=== PATIENT | male | born 1960 | race Caucasian/White ===

== ENCOUNTER 2022-12-07 04:03 | Day surgery (SDC) | payer OTHER, MEDICARE ==
[2022-12-05 10:53] VITALS: BMI 25.0
[~2022-12-07 04:03] MED LIST: ACETAMINOPHEN 500 MG TABLET (FP) PO PRN; IOHEXOL 180 MG/1 ML ML IJ ONE; LIDOCAINE HCL 1% PRESERVATIVE FREE - 30ML VIAL IJ ONE
[2022-12-07 08:22] VITALS: RESP 18
[2022-12-07] MEDS ORDERED: ACETAMINOPHEN 500 MG TABLET (FP) PO PRN (09:32)
[2022-12-07] MEDS ORDERED: LIDOCAINE HCL 1% PRESERVATIVE FREE - 30ML VIAL IJ ONE (10:20)
[2022-12-07] MEDS ORDERED: IOHEXOL 180 MG/1 ML ML IJ ONE (10:20)
[2022-12-07 10:56] VITALS: BP 136/64
[2022-12-07 11:05] VITALS: PULSE 70; TEMP 98
== END 2022-12-07 11:00 | disposition home or self-care (01) ==
LOC: JASU-SURG 04:03
PROVIDERS: ATTEND Pain Medicine Pain Medicine
PROC: 3E0R3BZ Introduction of Anesthetic Agent into Spinal Canal, Percutaneous Approach (ICD-10-PCS; 2022-12-07)
PROC: 3E0R33Z Introduction of Anti-inflammatory into Spinal Canal, Percutaneous Approach (ICD-10-PCS; principal; 2022-12-07 10:15)
DX: M54.16 Radiculopathy, lumbar region (principal)
CPT/HCPCS: 76000-TC-FY

== ENCOUNTER 2023-01-15 04:19 | Day surgery (SDC) | payer OTHER, MEDICARE ==
[2023-01-11 12:03] VITALS: BMI 25.0
[2023-01-15] MEDS ORDERED: BUPIVACAINE HCL/PF 0.25% (2.5MG/ML) 10 ML VIAL ONE (07:54)
[2023-01-15] MEDS ORDERED: BUPIVACAINE HCL/PF 0.5% (5MG/ML) 10 ML VIAL ONE (07:54)
[2023-01-15] MEDS ORDERED: ACETAMINOPHEN 500 MG TABLET (FP) PO PRN (09:54)
[2023-01-15 13:10] VITALS: TEMP 98.4
[2023-01-15] MEDS ORDERED: BUPIVACAINE HCL/PF 0.75% 10 ML VIAL ONE (14:32)
[2023-01-15] MEDS ORDERED: BUPIVACAINE HCL/PF 0.75% 10 ML VIAL NR ONE (14:33)
[2023-01-15] MEDS ORDERED: LIDOCAINE HCL 1%, 10 MG/ML (50 mL VIAL) NR ONE (14:33)
[2023-01-15 15:06] VITALS: BP 150/93; PULSE 60; RESP 20
== END 2023-01-15 15:12 | disposition home or self-care (01) ==
LOC: JASU-SURG 04:19
PROVIDERS: ATTEND Pain Medicine Pain Medicine
PROC: 3E0T33Z Introduction of Anti-inflammatory into Peripheral Nerves and Plexi, Percutaneous Approach (ICD-10-PCS; 2023-01-15)
PROC: 3E0T3BZ Introduction of Anesthetic Agent into Peripheral Nerves and Plexi, Percutaneous Approach (ICD-10-PCS; principal; 2023-01-15 14:30)
DX: M47.816 Spondylosis without myelopathy or radiculopathy, lumbar region (principal)
CPT/HCPCS: 76000-TC-FY

== ENCOUNTER 2023-02-15 04:44 | Day surgery (SDC) | payer OTHER, MEDICARE ==
[2023-02-13 17:56] VITALS: BMI 25.0
[~2023-02-15 04:44] MED LIST changes: -IOHEXOL 180 MG/1 ML ML IJ ONE; -LIDOCAINE HCL 1% PRESERVATIVE FREE - 30ML VIAL IJ ONE
[2023-02-15] MEDS ORDERED: LIDOCAINE HCL/PF 1% SDV 5ML VIAL ONE (07:32)
[2023-02-15] MEDS ORDERED: BUPIVACAINE HCL/PF 0.75% 10 ML VIAL ONE (07:32)
[2023-02-15 10:11] VITALS: RESP 18
[2023-02-15] MEDS ORDERED: LIDOCAINE HCL 1% PRESERVATIVE FREE - 30ML VIAL IJ ONE (12:13)
[2023-02-15] MEDS ORDERED: BUPIVACAINE HCL/PF 0.25% (2.5MG/ML) 10 ML VIAL IJ ONE (12:14)
[2023-02-15 12:35] VITALS: BP 144/82; PULSE 57; TEMP 97.9
[2023-02-15] MEDS ORDERED: ACETAMINOPHEN 500 MG TABLET (FP) PO PRN (15:37)
== END 2023-02-15 12:48 | disposition home or self-care (01) ==
LOC: JASU-SURG 04:44
PROVIDERS: ATTEND Pain Medicine Pain Medicine
PROC: 3E0T3BZ Introduction of Anesthetic Agent into Peripheral Nerves and Plexi, Percutaneous Approach (ICD-10-PCS; principal; 2023-02-15 12:30)
DX: M47.816 Spondylosis without myelopathy or radiculopathy, lumbar region (principal)
CPT/HCPCS: 76000-TC-FY

== ENCOUNTER 2023-02-18 08:52 | Inpatient (IN) | payer OTHER, MEDICARE ==
[2023-02-18] MEDS ORDERED: ACETAMINOPHEN 1000 MG/100 ML BAG IVPB ONE (09:35)
[2023-02-18] MEDS ORDERED: ACETAMINOPHEN INJECTION 100 ML IVPB ONE (09:52)
[2023-02-18 10:12] LABS: BASO % 0.1 % (0-2.0); EOS % 0.5 % (0-4.5); HEMATOCRIT 37.1 % (35.4-49); HEMOGLOBIN 12.3 GM/dL (11.7-16.9); LYMPH % 4.1 % (8-40); MCH 30.3 pg (25.7-33.7); MCHC 33.1 g/dl (32.0-35.9); MEAN CELL VOLUME 91.6 fl (80-96); MEAN PLT VOLUME 7.2 fl (7.5-11.1); MONO % 6.6 % (3.8-10.2); NEUT % 88.7 % (42.8-82.8); PLATELET COUNT 170 10^3/uL (134-434); RBC 4.04 M/mm3 (4.00-5.60); WHITE BLOOD COUNT 10.5 K/mm3 (4.0-10.0)
[2023-02-18 10:19] LABS: INR 1.05 (0.83-1.09); PROTHROMBIN TIME (PATIENT) 12.2 SEC (9.7-13.0)
[2023-02-18 10:48] LABS: POTASSIUM 3.9 mmol/L (3.5-5.1)
[2023-02-18 10:49] LABS: CALCIUM 8.9 mg/dL (8.5-10.1)
[2023-02-18 10:51] LABS: ALBUMIN 3.7 g/dl (3.4-5.0); BLOOD UREA NITROGEN 28.6 mg/dL (7-18)
[2023-02-18 10:53] LABS: CREATININE 1.1 mg/dL (0.55-1.3)
[2023-02-18 10:55] LABS: BILIRUBIN,TOTAL 0.6 mg/dL (0.2-1); TOT PROT 6.2 g/dl (6.4-8.2)
[2023-02-18] MEDS ORDERED: FENTANYL CITRATE/PF 50 MCG/ML VIAL ONE (11:04)
[2023-02-18] MEDS ORDERED: diazePAM CARPU-JECT 10 MG/2 ML DISP.SYRIN IVPUSH ONE (12:54)
[2023-02-18] MEDS ORDERED: diazePAM CARPU-JECT 10 MG/2 ML DISP.SYRIN ONE (12:58)
[2023-02-18 14:00] LABS: URINE COLOR YELLOW
[2023-02-18 14:01] LABS: PH,URINE 5.5 (5.0-8.0); URINE APPEARANCE CLEAR; URINE BILIRUBIN NEGATIVE (NEGATIVE); URINE GLUCOSE (UA) NEGATIVE (NEGATIVE); URINE KETONE NEGATIVE (NEGATIVE); URINE LEUK ESTERASE NEGATIVE (NEGATIVE); URINE NITRITE NEGATIVE (NEGATIVE); URINE PROTEIN NEGATIVE (NEGATIVE)
[2023-02-18] MEDS ORDERED: BACLOFEN 10 MG TABLET (FP) PO ONE (14:31)
[2023-02-18] MEDS ORDERED: DICLOFENAC SODIUM 25 MG TABLET.DR PO ONE (14:31)
[2023-02-18] MEDS ORDERED: GABAPENTIN 300 MG CAPSULE PO ONE (14:31)
[2023-02-18] MEDS ORDERED: BACLOFEN 10 MG TABLET (FP) ONE (14:43)
[2023-02-18] MEDS ORDERED: oxyCODONE HCL 5 MG TABLET ONE (18:16)
[2023-02-18] MEDS: oxyCODONE HCL 5 MG TABLET PO PRN (18:20)
[2023-02-18] MEDS ORDERED: LIDOCAINE 4% PATCH TP ONE (18:23)
[2023-02-18] MEDS: LIDOCAINE 4% PATCH TP SCH (18:26)
[2023-02-18] MEDS: HEPARIN NA (PORCINE) 5,000 UNITS/ML 1ML VIAL SQ SCH ×2 (22:25→22:27)
[2023-02-18] MEDS: BACLOFEN 10 MG TABLET (FP) PO SCH (22:26)
[2023-02-18] MEDS: GABAPENTIN 100 MG CAPSULE PO SCH (22:27)
[2023-02-18] MEDS: LIDOCAINE PATCH REMOVAL MC SCH (22:28)
[2023-02-19] MEDS: oxyCODONE HCL 5 MG TABLET PO PRN ×3 (02:21→17:47)
[2023-02-19] MEDS: GABAPENTIN 100 MG CAPSULE PO SCH ×3 (06:26→22:10)
[2023-02-19] MEDS: BACLOFEN 10 MG TABLET (FP) PO SCH (06:26)
[2023-02-19] MEDS ORDERED: methylPREDNISolone 8 MG TABLET PO ONE (08:00)
[2023-02-19] MEDS: IBUPROFEN 600 MG TABLET (FP) PO SCH ×3 (08:49→22:10)
[2023-02-19] MEDS ORDERED: methylPREDNISolone 4 MG TABLET PO ONE (09:00)
[2023-02-19 09:27] LABS: HEMATOCRIT 36.9 % (35.4-49); HEMOGLOBIN 11.7 GM/dL (11.7-16.9); MCH 29.5 pg (25.7-33.7); MCHC 31.8 g/dl (32.0-35.9); MEAN CELL VOLUME 92.9 fl (80-96); MEAN PLT VOLUME 7.7 fl (7.5-11.1); PLATELET COUNT 146 10^3/uL (134-434); RBC 3.97 M/mm3 (4.00-5.60); RDW 12.9 % (11.9-15.9); WHITE BLOOD COUNT 21.2 K/mm3 (4.0-10.0)
[2023-02-19] MEDS: LIDOCAINE 4% PATCH TP SCH (09:47)
[2023-02-19] MEDS: HEPARIN NA (PORCINE) 5,000 UNITS/ML 1ML VIAL SQ SCH ×2 (09:47→22:10)
[2023-02-19] MEDS: ACETAMINOPHEN 325 MG TABLET (FP) PO SCH ×3 (09:48→22:10)
[2023-02-19] MEDS: ASPIRIN 81 MG CHEWABLE TABLETS PO SCH (09:48)
[2023-02-19 09:50] LABS: POTASSIUM 3.9 mmol/L (3.5-5.1)
[2023-02-19 09:53] LABS: CALCIUM 8.1 mg/dL (8.5-10.1)
[2023-02-19 09:54] LABS: BLOOD UREA NITROGEN 22.8 mg/dL (7-18)
[2023-02-19 09:57] LABS: CREATININE 1.1 mg/dL (0.55-1.3)
[2023-02-19 09:58] LABS: BILIRUBIN,TOTAL 0.9 mg/dL (0.2-1); TOT PROT 5.3 g/dl (6.4-8.2)
[2023-02-19 10:00] LABS: ALBUMIN 2.9 g/dl (3.4-5.0)
[2023-02-19] MEDS ORDERED: LISINOPRIL 20 MG TABLET PO SCH (10:00)
[2023-02-19] MEDS ORDERED: PATIENT'S OWN MEDICATION (NON-FORMULARY) (Meloxicam 15 MG Tablet) PO SCH (10:00)
[2023-02-19 10:29] LABS: ANISOCYTOSIS 0; MACROCYTOSIS 0
[2023-02-19] MEDS ORDERED: PIPERACILLIN/TAZOB 3.375 GM 3.375 GM in DEXTROSE 5%-WATER - 50 ML IVPB SCH ×2 (11:00→11:15)
[2023-02-19] MEDS ORDERED: VANCOMYCIN/WATER FOR INJ (PEG) 1,000 MG/200 ML BAG IVPB ONE (11:15)
[2023-02-19] MEDS: CEFTRIAXONE 2 GM in DEXTROSE 5%-WATER 100 ML IVPB SCH (16:07)
[2023-02-19] MEDS: LIDOCAINE PATCH REMOVAL MC SCH (22:18)
[2023-02-20] MEDS: oxyCODONE HCL 5 MG TABLET PO PRN ×3 (00:39→23:01)
[2023-02-20] MEDS: VANCOMYCIN/WATER 1250 MG 1,250 MG/250 ML BAG IVPB SCH ×3 (00:41→23:00)
[2023-02-20] MEDS: ACETAMINOPHEN 325 MG TABLET (FP) PO SCH ×4 (02:42→21:40)
[2023-02-20] MEDS: IBUPROFEN 600 MG TABLET (FP) PO SCH ×3 (02:43→13:09)
[2023-02-20] MEDS: GABAPENTIN 100 MG CAPSULE PO SCH ×2 (09:14→21:41)
[2023-02-20] MEDS: CEFTRIAXONE 2 GM in DEXTROSE 5%-WATER 100 ML IVPB SCH (09:14)
[2023-02-20] MEDS: HEPARIN NA (PORCINE) 5,000 UNITS/ML 1ML VIAL SQ SCH ×2 (09:14→21:41)
[2023-02-20] MEDS: ASPIRIN 81 MG CHEWABLE TABLETS PO SCH (09:14)
[2023-02-20 11:00] LABS: BASO % 0.1 % (0-2.0); EOS % 1.1 % (0-4.5); HEMATOCRIT 37.4 % (35.4-49); HEMOGLOBIN 12.4 GM/dL (11.7-16.9); LYMPH % 4.3 % (8-40); MCH 30.1 pg (25.7-33.7); MCHC 33.2 g/dl (32.0-35.9); MEAN CELL VOLUME 90.7 fl (80-96); MEAN PLT VOLUME 7.8 fl (7.5-11.1); MONO % 4.6 % (3.8-10.2); NEUT % 89.9 % (42.8-82.8); PLATELET COUNT 159 10^3/uL (134-434); RBC 4.13 M/mm3 (4.00-5.60); RDW 12.8 % (11.9-15.9)
[2023-02-20 11:35] LABS: POTASSIUM 3.7 mmol/L (3.5-5.1)
[2023-02-20 11:41] LABS: CALCIUM 8.5 mg/dL (8.5-10.1)
[2023-02-20 11:42] LABS: ALBUMIN 2.6 g/dl (3.4-5.0)
[2023-02-20 11:44] LABS: CREATININE 1.1 mg/dL (0.55-1.3); PHOSPHOROUS 1.8 mg/dL (2.5-4.9)
[2023-02-20 11:46] LABS: TOT PROT 5.2 g/dl (6.4-8.2)
[2023-02-20 11:48] LABS: BILIRUBIN,TOTAL 1.2 mg/dL (0.2-1)
[2023-02-20 11:50] LABS: BLOOD UREA NITROGEN 27.2 mg/dL (7-18)
[2023-02-20] MEDS: LIDOCAINE 4% PATCH TP SCH (12:49)
[2023-02-20] MEDS: NAPH,MB-DB/K PH,MBDB POWDER PACKET PO SCH ×2 (13:11→21:41)
[2023-02-20] MEDS ORDERED: HEPARIN NA (PORCINE) 5,000 UNITS/ML 1ML VIAL IVPUSH PRN ×2 (13:38)
[2023-02-20] MEDS ORDERED: HEPARIN NA (PORCINE) 5,000 UNITS/ML 1ML VIAL IVPUSH ONE (14:15)
[2023-02-20] MEDS ORDERED: HEPARIN INFUSION - 25,000 UNITS/500 ML INFUS.BAG IVPB SCH (14:15)
[2023-02-20] MEDS: LIDOCAINE PATCH REMOVAL MC SCH (21:41)
[2023-02-20] MEDS ORDERED: oxyCODONE HCL 5 MG TABLET PO SCH (22:00)
[2023-02-20] MEDS ORDERED: LIDOCAINE 4% PATCH TP ONE (22:47)
[2023-02-21] MEDS: ACETAMINOPHEN 325 MG TABLET (FP) PO SCH (01:30)
[2023-02-21] MEDS: ACETAMINOPHEN 1000 MG/100 ML BAG IVPB PRN ×2 (04:59→15:05)
[2023-02-21 07:40] LABS: BASO % 0.1 % (0-2.0); EOS % 2.4 % (0-4.5); HEMOGLOBIN 11.8 GM/dL (11.7-16.9); LYMPH % 9.3 % (8-40); MCH 30.2 pg (25.7-33.7); MCHC 32.9 g/dl (32.0-35.9); MEAN CELL VOLUME 91.9 fl (80-96); MEAN PLT VOLUME 7.8 fl (7.5-11.1); MONO % 9.7 % (3.8-10.2); NEUT % 78.5 % (42.8-82.8); PLATELET COUNT 171 10^3/uL (134-434); RBC 3.92 M/mm3 (4.00-5.60); RDW 12.4 % (11.9-15.9)
[2023-02-21 07:53] LABS: ALBUMIN 2.6 g/dl (3.4-5.0); CALCIUM 8.1 mg/dL (8.5-10.1)
[2023-02-21 07:55] LABS: CREATININE 0.8 mg/dL (0.55-1.3)
[2023-02-21 07:57] LABS: BILIRUBIN,TOTAL 0.3 mg/dL (0.2-1); TOT PROT 5.3 g/dl (6.4-8.2)
[2023-02-21] MEDS: oxyCODONE HCL 5 MG TABLET PO PRN (08:25)
[2023-02-21] MEDS: LIDOCAINE 4% PATCH TP SCH (09:30)
[2023-02-21] MEDS: CEFTRIAXONE 2 GM in DEXTROSE 5%-WATER 100 ML IVPB SCH (09:30)
[2023-02-21] MEDS: GABAPENTIN 100 MG CAPSULE PO SCH ×2 (09:30→21:12)
[2023-02-21] MEDS: ASPIRIN 81 MG CHEWABLE TABLETS PO SCH (09:30)
[2023-02-21] MEDS: LIDOCAINE PATCH REMOVAL MC SCH ×2 (09:32→21:27)
[2023-02-21] MEDS ORDERED: oxyCODONE HCL 5 MG TABLET PO PRN (11:45)
[2023-02-21] MEDS ORDERED: VANCOMYCIN/WATER 1250 MG 1,250 MG/250 ML BAG IVPB SCH (12:00)
[2023-02-21] MEDS ORDERED: MIDAZOLAM HCL 2 MG/2 ML SINGLE DOSE VIAL ONE (13:40)
[2023-02-21] MEDS ORDERED: LIDOCAINE VISCOUS 2% ORAL/TOP 15 ML UNIT-DOSE CUP ONE (13:45)
[2023-02-21] MEDS ORDERED: LIDOCAINE VISCOUS 2% ORAL/TOP 15 ML UNIT-DOSE CUP PO ONE (13:46)
[2023-02-21] MEDS ORDERED: oxyCODONE HCL 5 MG TABLET PO ONE (16:48)
[2023-02-21] MEDS: HEPARIN NA (PORCINE) 5,000 UNITS/ML 1ML VIAL SQ SCH ×2 (17:48→21:19)
[2023-02-21] MEDS ORDERED: ACETAMINOPHEN 1000 MG/100 ML BAG IVPB PRN (18:09)
[2023-02-21] MEDS: SENNOSIDES 8.6MG TABLET (FP) PO SCH (21:11)
[2023-02-21] MEDS: NAPROXEN 500 MG TABLET PO SCH (21:27)
[2023-02-21] MEDS: traMADol HCL 50 MG TABLET PO PRN (22:31)
[2023-02-21] MEDS ORDERED: MELATONIN 5 MG TABLETS PO ONE (23:15)
[2023-02-22] MEDS: oxyCODONE HCL 5 MG TABLET PO PRN ×2 (04:54→17:30)
[2023-02-22 07:57] LABS: HEMATOCRIT 30.6 % (35.4-49); HEMOGLOBIN 10.2 GM/dL (11.7-16.9); MCH 30.2 pg (25.7-33.7); MCHC 33.5 g/dl (32.0-35.9); MEAN CELL VOLUME 90.3 fl (80-96); MEAN PLT VOLUME 7.7 fl (7.5-11.1); PLATELET COUNT 182 10^3/uL (134-434); RBC 3.39 M/mm3 (4.00-5.60); RDW 12.5 % (11.9-15.9); WHITE BLOOD COUNT 6.4 K/mm3 (4.0-10.0)
[2023-02-22 08:20] LABS: POTASSIUM 3.8 mmol/L (3.5-5.1)
[2023-02-22 08:31] LABS: BLOOD UREA NITROGEN 17.6 mg/dL (7-18); CALCIUM 8.3 mg/dL (8.5-10.1)
[2023-02-22 08:34] LABS: CREATININE 0.7 mg/dL (0.55-1.3)
[2023-02-22] MEDS: HEPARIN NA (PORCINE) 5,000 UNITS/ML 1ML VIAL SQ SCH ×2 (09:50→21:04)
[2023-02-22] MEDS: ASPIRIN 81 MG CHEWABLE TABLETS PO SCH (09:51)
[2023-02-22] MEDS: CEFTRIAXONE 2 GM in DEXTROSE 5%-WATER 100 ML IVPB SCH (09:51)
[2023-02-22] MEDS: LIDOCAINE 4% PATCH TP SCH (09:52)
[2023-02-22] MEDS: GABAPENTIN 100 MG CAPSULE PO SCH ×2 (09:52→21:04)
[2023-02-22] MEDS: NAPROXEN 500 MG TABLET PO SCH ×2 (09:54→21:03)
[2023-02-22] MEDS: LIDOCAINE PATCH REMOVAL MC SCH ×2 (09:56→21:05)
[2023-02-22] MEDS ORDERED: POLYETHYLENE GLYCOL (HEALTHYLAX) 3350 17 GM PACKET PO SCH (10:00)
[2023-02-22] MEDS: traMADol HCL 50 MG TABLET PO PRN ×2 (13:53→20:43)
[2023-02-22] MEDS ORDERED: hydrOXYzine PAMOATE 25 MG CAPSULE (FP) PO ONE (20:02)
[2023-02-22] MEDS: SENNOSIDES 8.6MG TABLET (FP) PO SCH (21:04)
[2023-02-22] MEDS ORDERED: MELATONIN 5 MG TABLETS PO ONE (23:18)
[2023-02-23] MEDS: oxyCODONE HCL 5 MG TABLET PO PRN ×3 (06:12→19:26)
[2023-02-23] MEDS ORDERED: ACETAMINOPHEN 500 MG TABLET (FP) PO SCH (08:15)
[2023-02-23] MEDS: CEFTRIAXONE 2 GM in DEXTROSE 5%-WATER 100 ML IVPB SCH (09:10)
[2023-02-23] MEDS: LIDOCAINE 4% PATCH TP SCH (09:11)
[2023-02-23] MEDS: POLYETHYLENE GLYCOL (HEALTHYLAX) 3350 17 GM PACKET PO SCH ×2 (09:11→22:17)
[2023-02-23] MEDS: ENOXAPARIN NA (PORCINE) 40 MG/0.4 ML DISP.SYRIN SQ SCH (09:11)
[2023-02-23] MEDS: LACTOBACILLUS ACIDOPHILUS 1 TABLET PO SCH (09:11)
[2023-02-23] MEDS: ASPIRIN 81 MG CHEWABLE TABLETS PO SCH (09:11)
[2023-02-23 09:12] LABS: BASO % 0.3 % (0-2.0); EOS % 4.9 % (0-4.5); HEMATOCRIT 31.7 % (35.4-49); HEMOGLOBIN 10.8 GM/dL (11.7-16.9); LYMPH % 20.8 % (8-40); MCH 30.2 pg (25.7-33.7); MEAN CELL VOLUME 88.8 fl (80-96); MEAN PLT VOLUME 7.3 fl (7.5-11.1); PLATELET COUNT 204 10^3/uL (134-434); RBC 3.56 M/mm3 (4.00-5.60); RDW 12.5 % (11.9-15.9); WHITE BLOOD COUNT 6.9 K/mm3 (4.0-10.0)
[2023-02-23] MEDS: TERAZOSIN HCL 1 MG CAPSULE PO SCH (09:14)
[2023-02-23] MEDS: NAPROXEN 500 MG TABLET PO SCH ×2 (09:14→21:56)
[2023-02-23] MEDS: GABAPENTIN 100 MG CAPSULE PO SCH ×2 (09:17→21:56)
[2023-02-23] MEDS: LISINOPRIL 20 MG TABLET PO SCH (09:17)
[2023-02-23] MEDS: LIDOCAINE PATCH REMOVAL MC SCH ×2 (09:29→21:57)
[2023-02-23 09:38] LABS: POTASSIUM 3.7 mmol/L (3.5-5.1)
[2023-02-23 09:43] LABS: ALBUMIN 2.7 g/dl (3.4-5.0); BLOOD UREA NITROGEN 15.6 mg/dL (7-18); CALCIUM 8.6 mg/dL (8.5-10.1)
[2023-02-23 09:46] LABS: CREATININE 0.8 mg/dL (0.55-1.3); PHOSPHOROUS 3.6 mg/dL (2.5-4.9)
[2023-02-23 09:47] LABS: BILIRUBIN,TOTAL 0.4 mg/dL (0.2-1); TOT PROT 5.5 g/dl (6.4-8.2)
[2023-02-23] MEDS: traMADol HCL 50 MG TABLET PO PRN (15:46)
[2023-02-23] MEDS: SENNOSIDES 8.6MG TABLET (FP) PO SCH (22:17)
[2023-02-24] MEDS: MELATONIN 5 MG TABLETS PO PRN ×2 (01:19→18:32)
[2023-02-24] MEDS: ASPIRIN 81 MG CHEWABLE TABLETS PO SCH (09:22)
[2023-02-24] MEDS: ENOXAPARIN NA (PORCINE) 40 MG/0.4 ML DISP.SYRIN SQ SCH (09:22)
[2023-02-24] MEDS: GABAPENTIN 100 MG CAPSULE PO SCH ×2 (09:22→21:31)
[2023-02-24] MEDS: TERAZOSIN HCL 1 MG CAPSULE PO SCH (09:22)
[2023-02-24] MEDS: LACTOBACILLUS ACIDOPHILUS 1 TABLET PO SCH (09:22)
[2023-02-24] MEDS: LISINOPRIL 20 MG TABLET PO SCH (09:22)
[2023-02-24] MEDS: POLYETHYLENE GLYCOL (HEALTHYLAX) 3350 17 GM PACKET PO SCH ×2 (09:22→21:31)
[2023-02-24] MEDS: CEFTRIAXONE 2 GM in DEXTROSE 5%-WATER 100 ML IVPB SCH (09:23)
[2023-02-24] MEDS: NAPROXEN 500 MG TABLET PO SCH ×2 (09:23→21:31)
[2023-02-24 09:30] LABS: BASO % 0.2 % (0-2.0); EOS % 4.4 % (0-4.5); HEMATOCRIT 33.6 % (35.4-49); LYMPH % 14.3 % (8-40); MCH 29.7 pg (25.7-33.7); MCHC 32.6 g/dl (32.0-35.9); MEAN CELL VOLUME 91.1 fl (80-96); MEAN PLT VOLUME 6.8 fl (7.5-11.1); MONO % 8.2 % (3.8-10.2); NEUT % 72.9 % (42.8-82.8); PLATELET COUNT 261 10^3/uL (134-434); RBC 3.69 M/mm3 (4.00-5.60); RDW 12.4 % (11.9-15.9); WHITE BLOOD COUNT 8.8 K/mm3 (4.0-10.0)
[2023-02-24 09:45] LABS: POTASSIUM 3.9 mmol/L (3.5-5.1)
[2023-02-24] MEDS: LIDOCAINE PATCH REMOVAL MC SCH ×2 (09:51→21:31)
[2023-02-24 09:52] LABS: CALCIUM 8.6 mg/dL (8.5-10.1)
[2023-02-24 09:53] LABS: ALBUMIN 2.8 g/dl (3.4-5.0); BLOOD UREA NITROGEN 14.4 mg/dL (7-18)
[2023-02-24 09:54] LABS: CREATININE 0.9 mg/dL (0.55-1.3)
[2023-02-24 09:55] LABS: BILIRUBIN,TOTAL 0.4 mg/dL (0.2-1)
[2023-02-24 09:56] LABS: TOT PROT 5.8 g/dl (6.4-8.2)
[2023-02-24] MEDS: LIDOCAINE 4% PATCH TP SCH (10:30)
[2023-02-24] MEDS: oxyCODONE HCL 5 MG TABLET PO PRN ×2 (14:32→18:32)
[2023-02-24] MEDS: SENNOSIDES 8.6MG TABLET (FP) PO SCH (21:35)
[2023-02-25] MEDS: oxyCODONE HCL 5 MG TABLET PO PRN ×2 (05:20→14:55)
[2023-02-25] MEDS: traMADol HCL 50 MG TABLET PO PRN ×2 (08:37→18:10)
[2023-02-25] MEDS: POLYETHYLENE GLYCOL (HEALTHYLAX) 3350 17 GM PACKET PO SCH ×2 (10:08→21:39)
[2023-02-25] MEDS: LISINOPRIL 20 MG TABLET PO SCH (10:08)
[2023-02-25] MEDS: ASPIRIN 81 MG CHEWABLE TABLETS PO SCH (10:08)
[2023-02-25] MEDS: LACTOBACILLUS ACIDOPHILUS 1 TABLET PO SCH (10:08)
[2023-02-25] MEDS: ENOXAPARIN NA (PORCINE) 40 MG/0.4 ML DISP.SYRIN SQ SCH (10:08)
[2023-02-25] MEDS: GABAPENTIN 100 MG CAPSULE PO SCH ×2 (10:08→21:36)
[2023-02-25] MEDS: CEFTRIAXONE 2 GM in DEXTROSE 5%-WATER 100 ML IVPB SCH (10:09)
[2023-02-25] MEDS: TERAZOSIN HCL 1 MG CAPSULE PO SCH (10:09)
[2023-02-25] MEDS: NAPROXEN 500 MG TABLET PO SCH ×2 (10:09→22:25)
[2023-02-25 10:12] LABS: BASO % 0.2 % (0-2.0); EOS % 5.5 % (0-4.5); HEMATOCRIT 33.6 % (35.4-49); HEMOGLOBIN 10.9 GM/dL (11.7-16.9); LYMPH % 15.4 % (8-40); MCH 29.6 pg (25.7-33.7); MCHC 32.5 g/dl (32.0-35.9); MEAN CELL VOLUME 91.2 fl (80-96); MEAN PLT VOLUME 6.9 fl (7.5-11.1); MONO % 8.6 % (3.8-10.2); NEUT % 70.3 % (42.8-82.8); PLATELET COUNT 322 10^3/uL (134-434); RBC 3.68 M/mm3 (4.00-5.60); RDW 12.7 % (11.9-15.9); WHITE BLOOD COUNT 8.3 K/mm3 (4.0-10.0)
[2023-02-25] MEDS: LIDOCAINE 4% PATCH TP SCH (10:14)
[2023-02-25] MEDS: LIDOCAINE PATCH REMOVAL MC SCH ×2 (10:15→21:44)
[2023-02-25 10:21] LABS: POTASSIUM 3.9 mmol/L (3.5-5.1)
[2023-02-25 10:30] LABS: CALCIUM 8.6 mg/dL (8.5-10.1)
[2023-02-25 10:31] LABS: BLOOD UREA NITROGEN 18.8 mg/dL (7-18)
[2023-02-25 10:34] LABS: CREATININE 0.9 mg/dL (0.55-1.3)
[2023-02-25 11:41] LABS: ERYTHROCYTE SEDIMENTATION RATE 59 mm/hr (0-20)
[2023-02-25 19:41] VITALS: BMI 25.2
[2023-02-25] MEDS: MELATONIN 5 MG TABLETS PO PRN (21:35)
[2023-02-25] MEDS: SENNOSIDES 8.6MG TABLET (FP) PO SCH (21:36)
[2023-02-26] MEDS: oxyCODONE HCL 5 MG TABLET PO PRN ×2 (01:26→14:06)
[2023-02-26] MEDS: traMADol HCL 50 MG TABLET PO PRN ×2 (09:33→16:02)
[2023-02-26] MEDS: LIDOCAINE 4% PATCH TP SCH (09:36)
[2023-02-26] MEDS: POLYETHYLENE GLYCOL (HEALTHYLAX) 3350 17 GM PACKET PO SCH (09:37)
[2023-02-26] MEDS: CEFTRIAXONE 2 GM in DEXTROSE 5%-WATER 100 ML IVPB SCH (09:37)
[2023-02-26] MEDS: LACTOBACILLUS ACIDOPHILUS 1 TABLET PO SCH (09:37)
[2023-02-26] MEDS: ENOXAPARIN NA (PORCINE) 40 MG/0.4 ML DISP.SYRIN SQ SCH (09:38)
[2023-02-26] MEDS: ASPIRIN 81 MG CHEWABLE TABLETS PO SCH (09:38)
[2023-02-26] MEDS: GABAPENTIN 100 MG CAPSULE PO SCH (09:38)
[2023-02-26] MEDS: NAPROXEN 500 MG TABLET PO SCH (09:39)
[2023-02-26] MEDS: LISINOPRIL 20 MG TABLET PO SCH (09:39)
[2023-02-26] MEDS: TERAZOSIN HCL 1 MG CAPSULE PO SCH (09:39)
[2023-02-26 14:42] VITALS: BP 136/79; PULSE 69; RESP 18; TEMP 98.4
[2023-02-26] MEDS: LIDOCAINE PATCH REMOVAL MC SCH (17:27)
== END 2023-02-26 18:02 | DRG 871 ==
LOC: JER 08:52 → JERBED 15:59 → J5S 18:30 → OBSVTOIN 02-20 09:33 → J4W 02-20 17:26 → J6S 02-23 20:05 → J8W 02-25 14:45
PROVIDERS: ADMIT Internal Medicine; ATTEND Internal Medicine
PROC: B246ZZ4 Ultrasonography of Right and Left Heart, Transesophageal (ICD-10-PCS; principal; 2023-02-21 13:00)
PROC: 02HV33Z Insertion of Infusion Device into Superior Vena Cava, Percutaneous Approach (ICD-10-PCS; 2023-02-26)
PROC: B548ZZA Ultrasonography of Superior Vena Cava, Guidance (ICD-10-PCS; 2023-02-26)
DX: A41.9 Sepsis, unspecified organism (principal); G06.2 Extradural and subdural abscess, unspecified; I10 Essential (primary) hypertension; B95.5 Unspecified streptococcus as the cause of diseases classified elsewhere; M46.40 Discitis, unspecified, site unspecified; I35.0 Nonrheumatic aortic (valve) stenosis; N40.0 Benign prostatic hyperplasia without lower urinary tract symptoms
CPT/HCPCS: 0241U-QW; 36415; 36569; 71045-TC-FY; 72132-TC; 72158-TC; 77001-TC-FY; 80048; 80053; 81003; 83735; 84100; 85025; 85027; 85610; 85651; 85730; 86140; 86850; 86900; 86901; 87040; 87086; 87186; 93005; 93010; 93306-TC; 93312; 93325; 97116-GP; 97162-GP; 99285-25; C1751; G0378; G0480; J0475; J1644

== ENCOUNTER 2023-02-27 16:14 | Day surgery (SDC) | payer OTHER, MEDICARE ==
[2023-02-27] MEDS ORDERED: CEFTRIAXONE 2 GM in DEXTROSE 5%-WATER 100 ML IVPB ONE (16:45)
[2023-02-27 17:20] VITALS: BP 96/68; PULSE 71; RESP 18; TEMP 97.6
== END 2023-02-27 17:22 | disposition home or self-care (01) ==
LOC: FINFUSION 16:14 → FM/S 16:15 → FINFUSION 17:22
PROVIDERS: ATTEND Internal Medicine
DX: I38 Endocarditis, valve unspecified (principal); R78.81 Bacteremia
CPT/HCPCS: 96365

== ENCOUNTER 2023-02-28 16:31 | Day surgery (SDC) | payer OTHER, MEDICARE ==
[2023-02-28] MEDS ORDERED: CEFTRIAXONE 2 GM in DEXTROSE 5%-WATER 100 ML IVPB ONE (17:00)
[2023-02-28 18:04] VITALS: BP 110/72; PULSE 70; RESP 16; TEMP 98.7
== END 2023-02-28 18:05 | disposition home or self-care (01) ==
LOC: FM/S 16:31 → FINFUSION 16:31
PROVIDERS: ATTEND Internal Medicine
DX: I38 Endocarditis, valve unspecified (principal); R78.81 Bacteremia
CPT/HCPCS: 96365

== ENCOUNTER 2023-03-01 10:55 | Day surgery (SDC) | payer OTHER, MEDICARE ==
[2023-03-01] MEDS ORDERED: CEFTRIAXONE 2 GM in DEXTROSE 5%-WATER 100 ML IVPB ONE (11:30)
[2023-03-01 11:54] VITALS: BP 124/78; PULSE 69; RESP 17; TEMP 98.3
== END 2023-03-01 11:56 | disposition home or self-care (01) ==
LOC: FM/S 10:55 → FINFUSION 10:55
PROVIDERS: ATTEND Internal Medicine
DX: R78.81 Bacteremia (principal); I38 Endocarditis, valve unspecified
CPT/HCPCS: 96365

== ENCOUNTER 2023-03-02 11:15 | Day surgery (SDC) | payer OTHER, MEDICARE ==
[2023-03-02] MEDS ORDERED: CEFTRIAXONE 2 GM in SODIUM CHLORIDE 100 ML IVPB SCH (11:45)
[2023-03-02 12:37] VITALS: BP 101/58; PULSE 63; RESP 15; TEMP 98.6
== END 2023-03-02 12:39 | disposition home or self-care (01) ==
LOC: FINFUSION 11:15 → FM/S 11:15 → FINFUSION 12:39
PROVIDERS: ATTEND Internal Medicine
DX: R78.81 Bacteremia (principal); I38 Endocarditis, valve unspecified
CPT/HCPCS: 96365

== ENCOUNTER 2023-03-03 10:59 | Day surgery (SDC) | payer OTHER, MEDICARE ==
[2023-03-03] MEDS ORDERED: CEFTRIAXONE 2 GM in DEXTROSE 5%-WATER 100 ML IVPB ONE (11:30)
[2023-03-03 12:05] VITALS: BP 106/54; PULSE 61; RESP 14; TEMP 98.6
== END 2023-03-03 12:13 | disposition home or self-care (01) ==
LOC: FINFUSION 10:59 → FM/S 10:59 → FINFUSION 12:13
PROVIDERS: ATTEND Internal Medicine
DX: R78.81 Bacteremia (principal); I38 Endocarditis, valve unspecified
CPT/HCPCS: 96365

== ENCOUNTER 2023-03-04 10:41 | Day surgery (SDC) | payer OTHER, MEDICARE ==
[2023-03-04] MEDS ORDERED: CEFTRIAXONE 2 GM in DEXTROSE 5%-WATER 100 ML IVPB ONE (11:30)
[2023-03-04 11:33] VITALS: RESP 18; TEMP 98.5
[2023-03-04 12:13] LABS: HEMATOCRIT 34.2 % (35.4-49); HEMOGLOBIN 11.1 G/dL (11.7-16.9); MCH 30.5 pg (25.7-33.7); MCHC 32.5 g/dl (32.0-35.9); MEAN CELL VOLUME 93.9 fl (80-96); PLATELET COUNT 404.1 10^3/uL (134-434); RBC 3.64 10^6/uL (4.00-5.60); RDW 13.6 % (11.9-15.9); WHITE BLOOD COUNT 8.3 10^3/uL (4.0-10.8)
[2023-03-04 12:17] VITALS: BP 128/75; PULSE 57
[2023-03-04 13:14] LABS: POTASSIUM 4.7 mmol/L (3.5-5.1)
[2023-03-04 13:15] LABS: CALCIUM 9.1 mg/dL (8.5-10.1)
[2023-03-04 13:16] LABS: ALBUMIN 2.9 g/dl (3.4-5.0); BLOOD UREA NITROGEN 22.5 mg/dL (7-18)
[2023-03-04 13:21] LABS: BILIRUBIN,TOTAL 0.5 mg/dL (0.2-1)
[2023-03-04 14:13] LABS: ERYTHROCYTE SEDIMENTATION RATE 34 mm/hr (0-20)
== END 2023-03-04 12:15 | disposition home or self-care (01) ==
LOC: FINFUSION 10:41 → FM/S 10:42 → FINFUSION 12:15
PROVIDERS: ATTEND Internal Medicine
DX: R78.81 Bacteremia (principal); I38 Endocarditis, valve unspecified
CPT/HCPCS: 36415; 80053; 85027; 85651; 86140; 96365

== ENCOUNTER 2023-03-05 10:48 | Day surgery (SDC) | payer OTHER, MEDICARE ==
[2023-03-05] MEDS ORDERED: CEFTRIAXONE 2 GM in SODIUM CHLORIDE 100 ML IVPB ONE (11:15)
[2023-03-05 11:57] VITALS: BP 128/65; PULSE 63; RESP 18; TEMP 98.3
== END 2023-03-05 11:57 | disposition home or self-care (01) ==
LOC: FINFUSION 10:48 → FM/S 10:49 → FINFUSION 11:57
PROVIDERS: ATTEND Internal Medicine
DX: R78.81 Bacteremia (principal); I38 Endocarditis, valve unspecified
CPT/HCPCS: 96365

== ENCOUNTER 2023-03-06 10:35 | Day surgery (SDC) | payer OTHER, MEDICARE ==
[2023-03-06] MEDS ORDERED: CEFTRIAXONE 2 GM in SODIUM CHLORIDE 100 ML IVPB ONE (11:00)
[2023-03-06 13:16] VITALS: BP 138/72; PULSE 100; RESP 18; TEMP 97.8
== END 2023-03-06 11:45 | disposition home or self-care (01) ==
LOC: FINFUSION 10:35 → FM/S 10:35 → FINFUSION 11:45
PROVIDERS: ATTEND Internal Medicine
DX: R78.81 Bacteremia (principal); I38 Endocarditis, valve unspecified
CPT/HCPCS: 96365

== ENCOUNTER 2023-03-07 10:50 | Day surgery (SDC) | payer OTHER, MEDICARE ==
[2023-03-07 11:09] VITALS: BP 155/88; PULSE 87; RESP 18; TEMP 97.8
[2023-03-07] MEDS ORDERED: CEFTRIAXONE 2 GM in SODIUM CHLORIDE 100 ML IVPB ONE (11:15)
== END 2023-03-07 11:51 | disposition home or self-care (01) ==
LOC: FINFUSION 10:50 → FM/S 10:50 → FINFUSION 11:51
PROVIDERS: ATTEND Internal Medicine
DX: R78.81 Bacteremia (principal); I38 Endocarditis, valve unspecified
CPT/HCPCS: 96365

== ENCOUNTER 2023-03-08 10:46 | Day surgery (SDC) | payer OTHER, MEDICARE ==
[2023-03-08] MEDS ORDERED: CEFTRIAXONE 2 GM in SODIUM CHLORIDE 100 ML IVPB ONE (11:00)
[2023-03-08 11:45] VITALS: BP 124/74; PULSE 68; RESP 20; TEMP 98.6
== END 2023-03-08 11:46 | disposition home or self-care (01) ==
LOC: FINFUSION 10:46 → FM/S 10:47 → FINFUSION 11:46
PROVIDERS: ATTEND Internal Medicine
DX: R78.81 Bacteremia (principal); I38 Endocarditis, valve unspecified
CPT/HCPCS: 96365

== ENCOUNTER 2023-03-09 11:28 | Day surgery (SDC) | payer OTHER, MEDICARE ==
[2023-03-09] MEDS ORDERED: CEFTRIAXONE 2 GM in SODIUM CHLORIDE 100 ML IVPB SCH (11:45)
[2023-03-09 12:33] VITALS: BP 135/70; PULSE 73; RESP 18; TEMP 98.2
== END 2023-03-09 12:33 | disposition home or self-care (01) ==
LOC: FINFUSION 11:28 → FM/S 11:29 → FINFUSION 12:33
PROVIDERS: ATTEND Internal Medicine
DX: R78.81 Bacteremia (principal); I38 Endocarditis, valve unspecified
CPT/HCPCS: 96365

== ENCOUNTER 2023-03-10 10:55 | Day surgery (SDC) | payer OTHER, MEDICARE ==
[2023-03-10] MEDS ORDERED: CEFTRIAXONE 2 GM in DEXTROSE 5%-WATER 100 ML IVPB ONE (11:15)
[2023-03-10 11:52] VITALS: BP 106/63; PULSE 66; RESP 18; TEMP 98.2
== END 2023-03-10 11:53 | disposition home or self-care (01) ==
LOC: FM/S 10:55 → FINFUSION 10:55
PROVIDERS: ATTEND Internal Medicine
DX: R78.81 Bacteremia (principal); I38 Endocarditis, valve unspecified
CPT/HCPCS: 96365

== ENCOUNTER 2023-03-11 10:41 | Day surgery (SDC) | payer OTHER, MEDICARE ==
[2023-03-11] MEDS ORDERED: CEFTRIAXONE 2 GM in SODIUM CHLORIDE 100 ML IVPB ONE (11:15)
[2023-03-11 11:44] LABS: HEMATOCRIT 34.3 % (35.4-49); HEMOGLOBIN 11.1 G/dL (11.7-16.9); MCHC 32.3 g/dl (32.0-35.9); MEAN CELL VOLUME 92.7 fl (80-96); MEAN PLT VOLUME 7.3 fl (7.5-11.1); PLATELET COUNT 269.1 10^3/uL (134-434); RDW 14.3 % (11.9-15.9); WHITE BLOOD COUNT 5.9 10^3/uL (4.0-10.8)
[2023-03-11 11:59] VITALS: BP 118/72; PULSE 62; RESP 16; TEMP 98.4
[2023-03-11 12:05] LABS: ALBUMIN 3.5 g/dl (3.4-5.0); BILIRUBIN,TOTAL 0.3 mg/dl (0.2-1); POTASSIUM 5.3 mmol/L (3.5-5.1); TOT PROT 5.7 g/dl (6.4-8.2)
[2023-03-11 12:24] LABS: ERYTHROCYTE SEDIMENTATION RATE 26 mm/hr (0-20)
== END 2023-03-11 12:07 | disposition home or self-care (01) ==
LOC: FINFUSION 10:41 → FM/S 10:41 → FINFUSION 12:07
PROVIDERS: ATTEND Internal Medicine
DX: R78.81 Bacteremia (principal); I38 Endocarditis, valve unspecified
CPT/HCPCS: 36415; 80053; 85027; 85651; 86140; 96365

== ENCOUNTER 2023-03-12 10:34 | Day surgery (SDC) | payer OTHER, MEDICARE ==
[2023-03-12] MEDS ORDERED: CEFTRIAXONE 2 GM in SODIUM CHLORIDE 100 ML IVPB ONE (10:45)
[2023-03-12 13:01] VITALS: BP 126/72; PULSE 62; RESP 16; TEMP 98.5
== END 2023-03-12 12:02 | disposition home or self-care (01) ==
LOC: FINFUSION 10:34 → FM/S 10:35 → FINFUSION 12:02
PROVIDERS: ATTEND Internal Medicine
DX: R78.81 Bacteremia (principal); I38 Endocarditis, valve unspecified
CPT/HCPCS: 96365

== ENCOUNTER 2023-03-13 09:58 | Day surgery (SDC) | payer OTHER, MEDICARE ==
[2023-03-13] MEDS ORDERED: CEFTRIAXONE 2 GM in SODIUM CHLORIDE 100 ML IVPB ONE (10:15)
[2023-03-13 11:03] VITALS: BP 130/83; PULSE 63; RESP 16; TEMP 98.2
== END 2023-03-13 11:11 | disposition home or self-care (01) ==
LOC: FM/S 09:58 → FINFUSION 09:58
PROVIDERS: ATTEND Internal Medicine
DX: R78.81 Bacteremia (principal); I38 Endocarditis, valve unspecified
CPT/HCPCS: 96365

== ENCOUNTER 2023-03-14 11:01 | Day surgery (SDC) | payer OTHER, MEDICARE ==
[2023-03-14] MEDS ORDERED: CEFTRIAXONE 2 GM in DEXTROSE 5%-WATER 100 ML IVPB ONE (11:30)
[2023-03-14 12:03] VITALS: BP 110/69; PULSE 60; RESP 20
== END 2023-03-14 12:06 | disposition home or self-care (01) ==
LOC: FINFUSION 11:01 → FM/S 11:02 → FINFUSION 12:06
PROVIDERS: ATTEND Internal Medicine
DX: R78.81 Bacteremia (principal); I38 Endocarditis, valve unspecified
CPT/HCPCS: 96365

== ENCOUNTER 2023-03-15 10:09 | Day surgery (SDC) | payer OTHER, MEDICARE ==
[2023-03-15] MEDS ORDERED: CEFTRIAXONE 2 GM in DEXTROSE 5%-WATER 100 ML IVPB ONE (10:30)
[2023-03-15 11:14] VITALS: BP 127/64; PULSE 76; RESP 18; TEMP 97.9
== END 2023-03-15 11:14 | disposition home or self-care (01) ==
LOC: FM/S 10:09 → FINFUSION 10:09
PROVIDERS: ATTEND Internal Medicine
DX: R78.81 Bacteremia (principal); I38 Endocarditis, valve unspecified
CPT/HCPCS: 96365

== ENCOUNTER 2023-03-16 10:53 | Day surgery (SDC) | payer OTHER, MEDICARE ==
[2023-03-16] MEDS ORDERED: CEFTRIAXONE 2 GM in SODIUM CHLORIDE 100 ML IVPB SCH (11:15)
[2023-03-16 11:27] VITALS: BP 132/77; RESP 18; TEMP 98.1
[2023-03-16 12:17] VITALS: PULSE 67
== END 2023-03-16 11:46 | disposition home or self-care (01) ==
LOC: FINFUSION 10:53 → FM/S 10:54 → FINFUSION 11:46
PROVIDERS: ATTEND Internal Medicine
DX: I38 Endocarditis, valve unspecified (principal)
CPT/HCPCS: 96365

== ENCOUNTER 2023-03-17 10:48 | Day surgery (SDC) | payer OTHER, MEDICARE ==
[2023-03-17] MEDS ORDERED: CEFTRIAXONE 2 GM in DEXTROSE 5%-WATER 100 ML IVPB ONE (11:30)
[2023-03-17] MEDS ORDERED: CEFTRIAXONE 2 GM in DEXTROSE 5%-WATER 100 ML IVPB SCH (11:30)
[2023-03-17 11:50] VITALS: BP 128/76; PULSE 72; RESP 18; TEMP 98
== END 2023-03-17 11:50 | disposition home or self-care (01) ==
LOC: FINFUSION 10:48 → FM/S 10:49 → FINFUSION 11:50
PROVIDERS: ATTEND Internal Medicine
DX: R78.81 Bacteremia (principal); I38 Endocarditis, valve unspecified
CPT/HCPCS: 96365

== ENCOUNTER 2023-03-18 10:22 | Day surgery (SDC) | payer OTHER, MEDICARE ==
[2023-03-18] MEDS ORDERED: CEFTRIAXONE 2 GM in SODIUM CHLORIDE 100 ML IVPB ONE (10:45)
[2023-03-18 11:45] VITALS: BP 120/72; PULSE 70; RESP 20; TEMP 98.1
[2023-03-18 11:57] LABS: HEMOGLOBIN 11.1 G/dL (11.7-16.9); MCH 30.2 pg (25.7-33.7); MCHC 32.6 g/dl (32.0-35.9); MEAN CELL VOLUME 92.8 fl (80-96); MEAN PLT VOLUME 7.4 fl (7.5-11.1); PLATELET COUNT 204.8 10^3/uL (134-434); RBC 3.66 10^6/uL (4.00-5.60); RDW 13.5 % (11.9-15.9); WHITE BLOOD COUNT 5.6 10^3/uL (4.0-10.8)
[2023-03-18 13:18] LABS: ALBUMIN 3.7 g/dl (3.4-5.0); BILIRUBIN,TOTAL 0.4 mg/dl (0.2-1); CALCIUM 9.1 mg/dl (8.5-10.1); CREATININE 1.1 mg/dl (0.6-1.3); POTASSIUM 4.7 mmol/L (3.5-5.1); TOT PROT 6.4 g/dl (6.4-8.2)
[2023-03-18 13:31] LABS: ERYTHROCYTE SEDIMENTATION RATE 21 mm/hr (0-20)
== END 2023-03-18 11:37 | disposition home or self-care (01) ==
LOC: FINFUSION 10:22 → FM/S 10:23 → FINFUSION 11:37
PROVIDERS: ATTEND Internal Medicine
DX: R78.81 Bacteremia (principal); I38 Endocarditis, valve unspecified
CPT/HCPCS: 36415; 80053; 85027; 85651; 86140; 96365

== ENCOUNTER 2023-03-19 11:00 | Day surgery (SDC) | payer OTHER, MEDICARE ==
[2023-03-19] MEDS ORDERED: CEFTRIAXONE 2 GM in SODIUM CHLORIDE 100 ML IVPB ONE (11:15)
[2023-03-19 11:56] VITALS: BP 132/90; PULSE 80; RESP 20; TEMP 98.6
== END 2023-03-19 11:58 | disposition home or self-care (01) ==
LOC: FINFUSION 11:00 → FM/S 11:01 → FINFUSION 11:58
PROVIDERS: ATTEND Internal Medicine
DX: R78.81 Bacteremia (principal); I38 Endocarditis, valve unspecified
CPT/HCPCS: 96365

== ENCOUNTER 2023-03-20 10:04 | Day surgery (SDC) | payer OTHER, MEDICARE ==
[2023-03-20] MEDS ORDERED: CEFTRIAXONE 2 GM in DEXTROSE 5%-WATER 100 ML IVPB ONE (10:15)
[2023-03-20 11:14] VITALS: BP 149/85; PULSE 58; RESP 18; TEMP 98.2
== END 2023-03-20 11:17 | disposition home or self-care (01) ==
LOC: FINFUSION 10:04 → FM/S 10:05 → FINFUSION 11:17
PROVIDERS: ATTEND Internal Medicine
DX: R78.81 Bacteremia (principal); I38 Endocarditis, valve unspecified
CPT/HCPCS: 96365

== ENCOUNTER 2023-03-21 10:11 | Day surgery (SDC) | payer OTHER, MEDICARE ==
[2023-03-21] MEDS ORDERED: CEFTRIAXONE 2 GM in SODIUM CHLORIDE 100 ML IVPB ONE (11:00)
[2023-03-21 11:55] VITALS: BP 130/75; PULSE 65; RESP 16; TEMP 97.9
== END 2023-03-21 13:06 | disposition home or self-care (01) ==
LOC: FINFUSION 10:11 → FM/S 10:12 → FINFUSION 13:06
PROVIDERS: ATTEND Internal Medicine
DX: R78.81 Bacteremia (principal); I38 Endocarditis, valve unspecified
CPT/HCPCS: 96365

== ENCOUNTER 2023-03-22 10:09 | Day surgery (SDC) | payer OTHER, MEDICARE ==
[2023-03-22] MEDS ORDERED: CEFTRIAXONE 2 GM in DEXTROSE 5%-WATER 100 ML IVPB ONE (10:30)
[2023-03-22 15:10] VITALS: BP 145/85; PULSE 75; RESP 16; TEMP 98.3
== END 2023-03-22 11:22 | disposition home or self-care (01) ==
LOC: FINFUSION 10:09 → FM/S 10:09 → FINFUSION 11:22
PROVIDERS: ATTEND Internal Medicine
DX: R78.81 Bacteremia (principal); I38 Endocarditis, valve unspecified
CPT/HCPCS: 96365

== ENCOUNTER 2023-03-23 10:50 | Day surgery (SDC) | payer OTHER, MEDICARE ==
[2023-03-23] MEDS ORDERED: CEFTRIAXONE 2 GM in SODIUM CHLORIDE 100 ML IVPB SCH (11:15)
[2023-03-23 11:58] VITALS: BP 125/79; PULSE 78; RESP 16; TEMP 98.1
== END 2023-03-23 11:58 | disposition home or self-care (01) ==
LOC: FINFUSION 10:50 → FM/S 10:51 → FINFUSION 11:58
PROVIDERS: ATTEND Internal Medicine
DX: R78.81 Bacteremia (principal); I38 Endocarditis, valve unspecified
CPT/HCPCS: 96365

== ENCOUNTER 2023-03-24 10:48 | Day surgery (SDC) | payer OTHER, MEDICARE ==
[2023-03-24] MEDS ORDERED: CEFTRIAXONE 2 GM in DEXTROSE 5%-WATER 100 ML IVPB ONE (10:55)
[2023-03-24 11:53] VITALS: BP 120/75; PULSE 69; RESP 16; TEMP 98.1
== END 2023-03-24 11:53 | disposition home or self-care (01) ==
LOC: FINFUSION 10:48 → FM/S 10:49 → FINFUSION 11:53
PROVIDERS: ATTEND Internal Medicine
DX: R78.81 Bacteremia (principal); I38 Endocarditis, valve unspecified
CPT/HCPCS: 96365

== ENCOUNTER 2023-03-25 10:18 | Day surgery (SDC) | payer OTHER, MEDICARE ==
[2023-03-25] MEDS ORDERED: CEFTRIAXONE 2 GM in DEXTROSE 5%-WATER 100 ML IVPB ONE (11:00)
[2023-03-25 11:26] LABS: HEMATOCRIT 36.5 % (35.4-49); HEMOGLOBIN 11.9 G/dL (11.7-16.9); MCH 29.7 pg (25.7-33.7); MCHC 32.7 g/dl (32.0-35.9); MEAN CELL VOLUME 90.7 fl (80-96); MEAN PLT VOLUME 7.6 fl (7.5-11.1); PLATELET COUNT 198.3 10^3/uL (134-434); RBC 4.02 10^6/uL (4.00-5.60); WHITE BLOOD COUNT 5.7 10^3/uL (4.0-10.8)
[2023-03-25 11:30] VITALS: BP 129/82; PULSE 63; RESP 18; TEMP 98.1
[2023-03-25 11:34] LABS: ALBUMIN 3.9 g/dl (3.4-5.0); ALK PHOS 56 U/L (45-117); ANION GAP 4 mmol/L (4-13); BILIRUBIN,TOTAL 0.4 mg/dl (0.2-1); CALCIUM 9.3 mg/dl (8.5-10.1); CHLORIDE 102 mmol/L (98-107); CO2 33 mmol/L (21-32); CREATININE 1.1 mg/dl (0.6-1.3); GLUCOSE,RANDOM 95 mg/dl (74-106); POTASSIUM 4.5 mmol/L (3.5-5.1); SGOT/AST 14 U/L (15-37); SGPT/ALT 12 U/L (7-52); SODIUM 139 mmol/L (136-145); TOT PROT 6.6 g/dl (6.4-8.2)
[2023-03-25 12:30] LABS: ERYTHROCYTE SEDIMENTATION RATE 16 mm/hr (0-20)
== END 2023-03-25 11:31 | disposition home or self-care (01) ==
LOC: FM/S 10:18 → FINFUSION 10:18
PROVIDERS: ATTEND Internal Medicine
DX: R78.81 Bacteremia (principal); I38 Endocarditis, valve unspecified
CPT/HCPCS: 36415; 80053; 85027; 85651; 86140; 96365

== ENCOUNTER 2023-03-26 09:38 | Day surgery (SDC) | payer OTHER, MEDICARE ==
[2023-03-26] MEDS ORDERED: CEFTRIAXONE 2 GM in DEXTROSE 5%-WATER 100 ML IVPB ONE (10:15)
[2023-03-26 11:02] VITALS: BP 126/82; PULSE 60; RESP 20; TEMP 97.8
== END 2023-03-26 11:05 | disposition home or self-care (01) ==
LOC: FINFUSION 09:38 → FM/S 09:39 → FINFUSION 11:05
PROVIDERS: ATTEND Internal Medicine
DX: R78.81 Bacteremia (principal); I38 Endocarditis, valve unspecified
CPT/HCPCS: 96365

== ENCOUNTER 2023-03-27 10:25 | Day surgery (SDC) | payer OTHER, MEDICARE ==
[2023-03-27] MEDS ORDERED: CEFTRIAXONE 2 GM in SODIUM CHLORIDE 100 ML IVPB ONE (10:45)
[2023-03-27 11:48] VITALS: BP 136/90; PULSE 87; RESP 16; TEMP 97.7
== END 2023-03-27 11:48 | disposition home or self-care (01) ==
LOC: FM/S 10:25 → FINFUSION 10:25
PROVIDERS: ATTEND Internal Medicine
DX: R78.81 Bacteremia (principal); I38 Endocarditis, valve unspecified
CPT/HCPCS: 96365

== ENCOUNTER 2023-03-28 10:38 | Day surgery (SDC) | payer OTHER, MEDICARE ==
[2023-03-28] MEDS ORDERED: CEFTRIAXONE 2 GM in SODIUM CHLORIDE 100 ML IVPB ONE (11:00)
[2023-03-28 11:39] VITALS: BP 139/70; PULSE 65; RESP 18; TEMP 98.1
== END 2023-03-28 11:40 | disposition home or self-care (01) ==
LOC: FINFUSION 10:38 → FM/S 10:39 → FINFUSION 11:40
PROVIDERS: ATTEND Internal Medicine
DX: R78.81 Bacteremia (principal); I38 Endocarditis, valve unspecified
CPT/HCPCS: 96365

== ENCOUNTER 2023-03-29 10:35 | Day surgery (SDC) | payer OTHER, MEDICARE ==
[2023-03-29] MEDS ORDERED: CEFTRIAXONE 2 GM in SODIUM CHLORIDE 100 ML IVPB ONE (11:00)
[2023-03-29 11:53] VITALS: BP 162/100; PULSE 66; RESP 18; TEMP 98.4
== END 2023-03-29 11:58 | disposition home or self-care (01) ==
LOC: FM/S 10:35 → FINFUSION 10:35
PROVIDERS: ATTEND Internal Medicine
DX: R78.81 Bacteremia (principal); I38 Endocarditis, valve unspecified
CPT/HCPCS: 96365; 96366

== ENCOUNTER 2023-03-30 11:50 | Day surgery (SDC) | payer OTHER, MEDICARE ==
[2023-03-30] MEDS ORDERED: CEFTRIAXONE 2 GM in SODIUM CHLORIDE 100 ML IVPB SCH (12:15)
[2023-03-30 13:08] VITALS: BP 150/93; PULSE 54; RESP 14; TEMP 98.1
== END 2023-03-30 13:09 | disposition home or self-care (01) ==
LOC: FINFUSION 11:50 → FM/S 11:50 → FINFUSION 13:09
PROVIDERS: ATTEND Internal Medicine
DX: I38 Endocarditis, valve unspecified (principal)
CPT/HCPCS: 96365

== ENCOUNTER 2023-03-31 11:32 | Day surgery (SDC) | payer OTHER, MEDICARE ==
[2023-03-31] MEDS ORDERED: CEFTRIAXONE 2 GM in DEXTROSE 5%-WATER 100 ML IVPB ONE (12:15)
[2023-03-31 12:46] VITALS: BP 129/81; PULSE 64; RESP 14; TEMP 98.3
== END 2023-03-31 12:46 | disposition home or self-care (01) ==
LOC: FINFUSION 11:32 → FM/S 11:34 → FINFUSION 12:46
PROVIDERS: ATTEND Internal Medicine
DX: R78.81 Bacteremia (principal); I38 Endocarditis, valve unspecified
CPT/HCPCS: 96365

== ENCOUNTER 2023-04-01 09:47 | Day surgery (SDC) | payer OTHER, MEDICARE ==
[2023-04-01] MEDS ORDERED: CEFTRIAXONE 2 GM in SODIUM CHLORIDE 100 ML IVPB ONE (10:30)
[2023-04-01 11:18] LABS: ALBUMIN 3.7 g/dl (3.4-5.0); ALK PHOS 56 U/L (45-117); ANION GAP 6 mmol/L (4-13); BILIRUBIN,TOTAL 0.4 mg/dl (0.2-1); CALCIUM 9.2 mg/dl (8.5-10.1); CHLORIDE 103 mmol/L (98-107); CO2 31 mmol/L (21-32); CREATININE 1.1 mg/dl (0.6-1.3); GLUCOSE,RANDOM 91 mg/dl (74-106); POTASSIUM 4.4 mmol/L (3.5-5.1); SGOT/AST 12 U/L (15-37); SGPT/ALT 11 U/L (7-52); SODIUM 140 mmol/L (136-145); TOT PROT 6.3 g/dl (6.4-8.2)
[2023-04-01 11:27] VITALS: BP 145/76; PULSE 57; RESP 20; TEMP 97.9
[2023-04-01 11:49] LABS: HEMOGLOBIN 11.6 G/dL (11.7-16.9); MCH 29.7 pg (25.7-33.7); MCHC 32.2 g/dl (32.0-35.9); MEAN CELL VOLUME 92.3 fl (80-96); MEAN PLT VOLUME 7.6 fl (7.5-11.1); PLATELET COUNT 229.3 10^3/uL (134-434); RDW 15.5 % (11.9-15.9); WHITE BLOOD COUNT 5.1 10^3/uL (4.0-10.8)
[2023-04-01 13:10] LABS: ERYTHROCYTE SEDIMENTATION RATE 8 mm/hr (0-20)
== END 2023-04-01 11:28 | disposition home or self-care (01) ==
LOC: FINFUSION 09:47 → FM/S 09:57 → FINFUSION 11:28
PROVIDERS: ATTEND Internal Medicine
DX: R78.81 Bacteremia (principal); I38 Endocarditis, valve unspecified
CPT/HCPCS: 36415; 80053; 85027; 85651; 86140; 96365

== ENCOUNTER 2023-04-02 10:52 | Day surgery (SDC) | payer OTHER, MEDICARE ==
[2023-04-02] MEDS ORDERED: CEFTRIAXONE 2 GM in SODIUM CHLORIDE 100 ML IVPB ONE (11:15)
[2023-04-02 11:49] VITALS: BP 125/80; PULSE 62; RESP 16; TEMP 98.1
== END 2023-04-02 11:49 | disposition home or self-care (01) ==
LOC: FINFUSION 10:52 → FM/S 10:53 → FINFUSION 11:49
PROVIDERS: ATTEND Internal Medicine
DX: R78.81 Bacteremia (principal); I38 Endocarditis, valve unspecified
CPT/HCPCS: 96365

== ENCOUNTER 2023-04-03 09:45 | Day surgery (SDC) | payer OTHER, MEDICARE ==
[2023-04-03] MEDS ORDERED: CEFTRIAXONE 2 GM in SODIUM CHLORIDE 100 ML IVPB ONE (10:15)
[2023-04-03 11:25] VITALS: BP 178/82; PULSE 78; RESP 18; TEMP 97.8
== END 2023-04-03 11:28 | disposition home or self-care (01) ==
LOC: FM/S 09:45 → FINFUSION 09:45
PROVIDERS: ATTEND Internal Medicine
DX: R78.81 Bacteremia (principal); I38 Endocarditis, valve unspecified
CPT/HCPCS: 96365